=== PATIENT | female | born 1975 | race Caucasian/White ===

== ENCOUNTER 2018-04-25 07:32 | Day surgery (SDC) | payer BC ==
[~2018-04-25 07:32] MED LIST: Buffered Lidocaine 0.9% SYRIN* 5 ML/SYR SYRINGE INTRADERM ONE
[2018-04-25] MEDS ORDERED: Lidocaine 2% PF * 5 ML VIAL ONE (08:30)
[2018-04-25] MEDS ORDERED: Propofol* 10 MG/ML 20 ML BTL IV PUSH ONE (08:30)
[2018-04-25] MEDS ORDERED: Midazolam* 1 MG/ML 5 ML VIAL (5 MG) ONE (08:33)
[2018-04-25] MEDS ORDERED: Bupivacaine 0.25% SDV* 30 ML ONE (09:01)
[2018-04-25] MEDS ORDERED: Acetaminophen TAB* 325 MG PO PRN (09:32)
[2018-04-25] MEDS ORDERED: Ketorolac INJ* 30 MG/ML 1 ML VIAL IV PRN (09:32)
[2018-04-25] MEDS ORDERED: Naloxone* 0.4 MG/ML 1 ML VIAL IV PRN (09:32)
[2018-04-25] MEDS ORDERED: oxyCODONE/Acetamin 5/325 MG* TAB PO PRN (09:32)
[2018-04-25 10:03] VITALS: BP 117/73
--- NOTE | 2018-04-25 20:47 | OP ---
DATE OF OPERATION: 04/25/18 [facility] DATE OF : 77 SURGEON: Alonzo Young MD VETERINARY MICROBIOLOGIST: BIBIANA Anderson. ANESTHESIOLOGIST: Dr. Orta. ANESTHESIA: Local MAC. PRE-OP DIAGNOSIS: Left dorsal wrist ganglion cyst. POST-OP DIAGNOSIS: Left dorsal wrist ganglion cyst. OPERATIVE PROCEDURE: Excision of left dorsal wrist ganglion cyst. INDICATIONS: Lilo has had this cyst for sometime. It waxes and wanes in size. It is symptomatic. She wanted it excised. We had talked about risks and benefits. ESTIMATED BLOOD LOSS: 2 mL. COMPLICATIONS: None. FINDINGS: See above and below. DESCRIPTION OF PROCEDURE: Lilo was seen in the preoperative holding area and the correct site, side and procedure were identified. We came back to the operating room where the arm was prepped and draped in the usual fashion. A timeout was performed. The arm was exsanguinated with the Esmarch and the tourniquet was inflated to 250 mmHg. I made a 2 cm transverse incision over the cyst. Dissection was carried down and a marginal excision was performed taking care to preserve the second, third, and fourth dorsal compartment tendons. Cyst emanated off the dorsum of the scapholunate joint in the typical location. The wrist was taken off the wrist capsule and the capsule was cauterized to try to prevent cyst recurrence. Once this was done, everything was looking good. We irrigated out the wound. Skin was closed with 4-0 Monocryl and Steri-Strips. Marcaine had been infiltrated prior to beginning the surgery. A cock-up wrist splint was applied and she was taken to recovery room in stable condition. [id number]/[facility] #: [id number] [facility]
== END 2018-04-25 10:16 | disposition home or self-care (01) ==
LOC: OREAST 07:32
PROVIDERS: ATTEND Orthopaedic Surgery Hand Surgery
DX: M67.432 Ganglion, left wrist (principal); Z88.0 Allergy status to penicillin
CPT/HCPCS: 81025; 88304; J2250; J2704